=== PATIENT | male | born 1945 | race Caucasian/White ===

== ENCOUNTER 2018-03-02 00:17 | Inpatient (IN) ==
[2018-03-02 04:04] LABS: Basophils # 0.1 10*3/uL (0.0-0.2); Basophils % 0.7 % (0.0-0.8); Eosinophils # 0.3 10*3/uL (0.0-0.87); Eosinophils % 3.2 % (0.00-10.9); Hematocrit 28.2 VOL% (42.0-52.0); Hemoglobin 9.4 GM/DL (14.0-18.0); Immature Granulocytes % 0.6 %; Immature Granulocytes Absolute 0.06 #; Lymphocytes # 2.1 10*3/uL (1.4-4.0); Lymphocytes % 22.1 % (21.2-54.2); Mean Corpuscular HGB Conc 33.3 GM/DL (32-36); Mean Corpuscular Hemoglobin 29 PG (27-34); Mean Corpuscular Volume 85.5 FL (87-102); Mean Platelet Volume 10.9 FL (9.6-12.0); Monocytes # 1.1 10*3/uL (0.11-0.8); Monocytes % 11.3 % (1.7-12.7); Neutrophils # 5.8 10*3/uL (1.4-7.4); Neutrophils % 62.1 % (38.7-73.9); Platelet Count 134 T/CUMM (130-400); Red Cell Distribution Width 16.2 % (9.3-17.3); White Blood Count 9.4 T/CUMM (4-12)
[2018-03-02 04:23] LABS: Albumin 2.8 G/DL (3.4-5.0); Bilirubin,Total 0.4 MG/DL (0.2-1.0); Calcium 8.2 MG/DL (8.5-10.1); Osmolality,Calculated 286.4 MOS/KG (273-304); Potassium 4.4 MMOL/L (3.5-5.1); Total Protein 6.4 G/DL (6.4-8.3)
[2018-03-02] MEDS ORDERED: PIPERACILLIN/TAZOBACTAM 3,375 MG in SODIUM CHLORIDE 0.9% 100 ML IV STA (05:44)
[2018-03-02] MEDS ORDERED: PANTOPRAZOLE 40 MG TABLET PO SCH (09:46)
[2018-03-02] MEDS ORDERED: ONDANSETRON 4 MG/2 ML VIAL IV PRN ×2 (09:46)
[2018-03-02] MEDS ORDERED: ACETAMINOPHEN 325 MG TABLET PO PRN (09:46)
[2018-03-02] MEDS ORDERED: MORPHINE 4 MG/1 ML VIAL IV PRN (09:46)
[2018-03-02] MEDS ORDERED: DEXTROSE 50% 25 GM/50 ML VIAL IV PRN (09:46)
[2018-03-02] MEDS ORDERED: GLUCAGON 1 MG VIAL IM PRN (09:46)
[2018-03-02] MEDS: CARVEDILOL 25 MG TABLET PO SCH ×2 (11:34→20:24)
[2018-03-02] MEDS: LOSARTAN 25 MG TABLET PO SCH (11:35)
[2018-03-02] MEDS: ASPIRIN EC 81 MG TABLET PO SCH (11:35)
[2018-03-02] MEDS: ALLOPURINOL 300 MG TABLET PO SCH (11:35)
[2018-03-02] MEDS: PANTOPRAZOLE 40 MG TABLET PO SCH (11:39)
[2018-03-02] MEDS: INSULIN LISPRO 100 UNIT/ML SUBCUT SCH ×4 (14:11→18:11)
[2018-03-02] MEDS: INSULIN GLARGINE 100 UNIT/ML SUBCUT SCH ×2 (14:16→21:32)
[2018-03-02] MEDS ORDERED: REGADENOSON 0.4 MG/5 ML SYRINGE IV ONE (14:21)
[2018-03-02] MEDS: PIPERACILLIN/TAZOBACTAM 3,375 MG in SODIUM CHLORIDE 0.9% 100 ML IV SCH ×3 (16:27→23:55)
[2018-03-02] MEDS: LACTATED RINGERS 1,000 ML IV SCH ×2 (16:27→16:53)
[2018-03-02] MEDS: TERAZOSIN 5 MG CAPSULE PO SCH (20:24)
[2018-03-03] MEDS: HYDROmorphone 2 MG/1 ML VIAL IV PRN ×3 (00:14→11:24)
[2018-03-03] MEDS: INSULIN LISPRO 100 UNIT/ML SUBCUT SCH ×6 (00:16→19:26)
[2018-03-03 07:32] LABS: Basophils # 0.1 10*3/uL (0.0-0.2); Basophils % 1.2 % (0.0-0.8); Eosinophils # 0.3 10*3/uL (0.0-0.87); Eosinophils % 4.1 % (0.00-10.9); Hematocrit 27.3 VOL% (42.0-52.0); Hemoglobin 8.8 GM/DL (14.0-18.0); Immature Granulocytes % 0.5 %; Immature Granulocytes Absolute 0.03 #; Lymphocytes # 1.5 10*3/uL (1.4-4.0); Lymphocytes % 22.5 % (21.2-54.2); Mean Corpuscular HGB Conc 32.2 GM/DL (32-36); Mean Corpuscular Hemoglobin 28 PG (27-34); Mean Corpuscular Volume 87.8 FL (87-102); Mean Platelet Volume 11.7 FL (9.6-12.0); Monocytes # 0.9 10*3/uL (0.11-0.8); Monocytes % 13.7 % (1.7-12.7); Neutrophils # 3.8 10*3/uL (1.4-7.4); Platelet Count 132 T/CUMM (130-400); Red Blood Count 3.11 MC/CUMM (3.8-5.5); Red Cell Distribution Width 16.5 % (9.3-17.3); White Blood Count 6.6 T/CUMM (4-12)
[2018-03-03 08:10] LABS: Albumin 2.6 G/DL (3.4-5.0); Bilirubin,Total 0.9 MG/DL (0.2-1.0); Calcium 8.7 MG/DL (8.5-10.1); Potassium 4.6 MMOL/L (3.5-5.1); Total Protein 6.1 G/DL (6.4-8.3)
[2018-03-03] MEDS: PIPERACILLIN/TAZOBACTAM 3,375 MG in SODIUM CHLORIDE 0.9% 100 ML IV SCH ×2 (08:55→16:23)
[2018-03-03] MEDS ORDERED: NON-FORMULARY MEDICATION (Turmeric Root Extract 500 MG) PO SCH (09:00)
[2018-03-03] MEDS: LACTATED RINGERS 1,000 ML IV SCH ×3 (09:02→19:27)
[2018-03-03] MEDS ORDERED: DIAZEPAM 5 MG TABLET PO ONE (10:29)
[2018-03-03] MEDS ORDERED: FAMOTIDINE 20 MG/2 ML VIAL IV ONE (10:29)
[2018-03-03] MEDS: CARVEDILOL 25 MG TABLET PO SCH ×2 (10:56→20:39)
[2018-03-03] MEDS ORDERED: BUPIVACAINE 0.25% /EPI 10 ML VIAL ONE (11:59)
[2018-03-03] MEDS ORDERED: LIDOCAINE 1%/EPI INJ 20 ML VIAL ONE (11:59)
[2018-03-03] MEDS ORDERED: TISSUE ADHESIVE 1 EACH APPLICATOR TOP ONE (11:59)
[2018-03-03] MEDS ORDERED: PROPOFOL 200 MG/20 ML VIAL IV ONE (14:03)
[2018-03-03] MEDS ORDERED: ROCURONIUM 100 MG/10 ML VIAL IV ONE (14:04)
[2018-03-03] MEDS ORDERED: SUCCINYLCHOLINE 200 MG/10 ML VIAL ONE (14:04)
[2018-03-03] MEDS ORDERED: ACETAMINOPHEN 1,000 MG/100 ML VIAL IV ONE (14:04)
[2018-03-03] MEDS ORDERED: NEOSTIGMINE 10 MG/10 ML VIAL ONE (14:04)
[2018-03-03] MEDS ORDERED: ePHEDrine 50 MG/ML AMP ONE (14:04)
[2018-03-03] MEDS ORDERED: GLYCOPYRROLATE 0.4 MG/2 ML VIAL ONE (14:04)
[2018-03-03] MEDS ORDERED: ONDANSETRON 4 MG/2 ML VIAL ONE ×2 (14:04→14:09)
[2018-03-03] MEDS ORDERED: HYDROmorphone 2 MG/1 ML VIAL ONE (14:09)
[2018-03-03] MEDS ORDERED: ONDANSETRON 4 MG/2 ML VIAL IV PRN (14:16)
[2018-03-03] MEDS ORDERED: HYDROmorphone 2 MG/1 ML VIAL IV PRN (14:16)
[2018-03-03] MEDS: ASPIRIN EC 81 MG TABLET PO SCH (15:17)
[2018-03-03] MEDS: LOSARTAN 25 MG TABLET PO SCH (15:17)
[2018-03-03] MEDS: INSULIN GLARGINE 100 UNIT/ML SUBCUT SCH ×2 (15:18→20:39)
[2018-03-03] MEDS: PANTOPRAZOLE 40 MG TABLET PO SCH (15:18)
[2018-03-03] MEDS: ALLOPURINOL 300 MG TABLET PO SCH (15:19)
[2018-03-03] MEDS: TERAZOSIN 5 MG CAPSULE PO SCH (20:38)
[2018-03-04] MEDS: LACTATED RINGERS 1,000 ML IV SCH (05:37)
[2018-03-04] MEDS: INSULIN LISPRO 100 UNIT/ML SUBCUT SCH ×3 (07:00→09:22)
[2018-03-04] MEDS: ASPIRIN EC 81 MG TABLET PO SCH (08:54)
[2018-03-04] MEDS: PANTOPRAZOLE 40 MG TABLET PO SCH (08:54)
[2018-03-04] MEDS: CARVEDILOL 25 MG TABLET PO SCH (08:54)
[2018-03-04] MEDS: PIPERACILLIN/TAZOBACTAM 3,375 MG in SODIUM CHLORIDE 0.9% 100 ML IV SCH ×2 (08:55)
[2018-03-04] MEDS ORDERED: LOSARTAN 50 MG TABLET PO SCH (09:00)
[2018-03-04] MEDS: ALLOPURINOL 300 MG TABLET PO SCH (09:00)
[2018-03-04] MEDS: INSULIN GLARGINE 100 UNIT/ML SUBCUT SCH (10:03)
[2018-03-04 10:38] LABS: Calcium 8.5 MG/DL (8.5-10.1); Osmolality,Calculated 286.3 MOS/KG (273-304); Potassium 4.4 MMOL/L (3.5-5.1)
[2018-03-04 13:25] VITALS: BP 145/76
== END 2018-03-04 13:35 | disposition home or self-care (01) | DRG 418 ==
LOC: N.ED 00:17 → N.EDINP 05:45 → N.5E 12:34
PROVIDERS: ADMIT Surgery; ATTEND Surgery
PROC: LAPCHOL (2018-03-03 12:30)

== ENCOUNTER 2018-10-06 14:53 | Inpatient (IN) ==
[2018-10-06 16:03] LABS: Basophils % 0.3 % (0.0-0.8); Eosinophils % 0.3 % (0.00-10.9); Hemoglobin 10.2 GM/DL (14.0-18.0); Immature Granulocytes % 4.1 %; Immature Granulocytes Absolute 0.48 #; Lymphocytes # 1.6 10*3/uL (1.4-4.0); Lymphocytes % 13.4 % (21.2-54.2); Mean Corpuscular HGB Conc 32.9 GM/DL (32-36); Mean Corpuscular Volume 95.1 FL (87-102); Mean Platelet Volume 10.5 FL (9.6-12.0); Monocytes % 8.2 % (1.7-12.7); Neutrophils % 73.7 % (38.7-73.9); Platelet Count 177 T/CUMM (130-400); Red Blood Count 3.26 MC/CUMM (3.8-5.5); Red Cell Distribution Width 13.2 % (9.3-17.3); White Blood Count 11.8 T/CUMM (4-12)
[2018-10-06 16:11] LABS: PT Patient Result 10.8 SECS
[2018-10-06 16:27] LABS: Albumin 2.4 G/DL (3.4-5.0); Bilirubin,Total 0.5 MG/DL (0.2-1.0); Calcium 8.1 MG/DL (8.5-10.1); Osmolality,Calculated 313.8 MOS/KG (273-304); Total Protein 5.6 G/DL (6.4-8.3)
[2018-10-06] MEDS ORDERED: ONDANSETRON 4 MG/2 ML VIAL IV PRN (18:14)
[2018-10-06] MEDS ORDERED: ACETAMINOPHEN 325 MG TABLET PO PRN (18:14)
[2018-10-06 18:26] LABS: Apearance,Urine CLOUDY (Clear); Bacteria,Urine Many /HPF (Few); Bilirubin,Urine Negative (Negative); Blood, Urine Moderate mg/dL (Negative); Glucose,Urine (UA) 50 mg/dL (Negative); Ketones,Urine Negative (Negative); Mucus,Urine Occasional /LPF (Occasional); Nitrite,Urine Positive (Negative); Protein,Urine 100 MG/DL; RBC,Urine 30 /HPF (0-4); Squamous Epithelial Cell,Urine Occasional /HPF (0-10); Urine Color Yellow (Yellow); Urine Specific Gravity 1.012 (1.001-1.035); Urine Urobilinogen < 2.0 EU/DL (0.2-1.0); WBC,Urine 512 /HPF (0-6)
[2018-10-06] MEDS ORDERED: hydrALAZINE 20 MG/1 ML VIAL IV PRN (18:26)
[2018-10-06] MEDS ORDERED: GLUCAGON 1 MG VIAL IM PRN (18:48)
[2018-10-06] MEDS ORDERED: DEXTROSE 50% 25 GM/50 ML SYRINGE IV PRN (18:48)
[2018-10-06 19:53] LABS: Hematocrit 30.1 VOL% (42.0-52.0)
[2018-10-06] MEDS ORDERED: TERAZOSIN 10 MG CAPSULE PO SCH (21:00)
[2018-10-06] MEDS ORDERED: INSULIN GLARGINE 100 UNIT/ML SUBCUT SCH (21:00)
[2018-10-06] MEDS: TERAZOSIN 5 MG CAPSULE PO SCH (21:20)
[2018-10-06] MEDS: ATORVASTATIN 40 MG TABLET PO SCH (21:22)
[2018-10-06] MEDS: LOSARTAN 50 MG TABLET PO SCH (21:22)
[2018-10-06] MEDS: INSULIN GLARGINE 100 UNIT/ML SUBCUT SCH (21:23)
[2018-10-06] MEDS: CARVEDILOL 25 MG TABLET PO SCH (21:24)
[2018-10-06] MEDS: INSULIN LISPRO 100 UNIT/ML SUBCUT SCH (21:24)
[2018-10-06] MEDS: PANTOPRAZOLE 40 MG VIAL IV SCH (21:29)
[2018-10-07 01:13] LABS: Hematocrit 26.9 VOL% (42.0-52.0); Hemoglobin 8.8 GM/DL (14.0-18.0)
[2018-10-07 06:31] LABS: Basophils % 0.3 % (0.0-0.8); Eosinophils # 0.1 10*3/uL (0.0-0.87); Eosinophils % 0.6 % (0.00-10.9); Hematocrit 25.6 VOL% (42.0-52.0); Hemoglobin 8.4 GM/DL (14.0-18.0); Immature Granulocytes % 3.3 %; Immature Granulocytes Absolute 0.38 #; Lymphocytes # 1.6 10*3/uL (1.4-4.0); Mean Corpuscular HGB Conc 32.8 GM/DL (32-36); Mean Corpuscular Volume 95.5 FL (87-102); Mean Platelet Volume 10.7 FL (9.6-12.0); Monocytes % 10.6 % (1.7-12.7); Neutrophils % 71.2 % (38.7-73.9); Platelet Count 154 T/CUMM (130-400); Red Blood Count 2.68 MC/CUMM (3.8-5.5); Red Cell Distribution Width 13.4 % (9.3-17.3); White Blood Count 11.4 T/CUMM (4-12)
[2018-10-07 06:54] LABS: Calcium 7.9 MG/DL (8.5-10.1); Osmolality,Calculated 306.7 MOS/KG (273-304); Risk Ratio 5.47; Thyroid Stimulating Hormone 0.894 uIU/ml (0.358-3.74); VLDL CHOLESTEROL 46.4 MG/DL
[2018-10-07] MEDS: INSULIN LISPRO 100 UNIT/ML SUBCUT SCH ×4 (08:27→21:40)
[2018-10-07] MEDS: POTASSIUM CHLORIDE 20 MEQ TABLET PO SCH (08:40)
[2018-10-07] MEDS: CARVEDILOL 25 MG TABLET PO SCH ×2 (08:40→16:22)
[2018-10-07] MEDS: PANTOPRAZOLE 40 MG VIAL IV SCH ×2 (08:40→21:08)
[2018-10-07] MEDS: predniSONE 10 MG TABLET PO SCH (08:40)
[2018-10-07] MEDS ORDERED: FUROSEMIDE 20 MG/2 ML VIAL IV PRN (08:43)
[2018-10-07] MEDS ORDERED: SODIUM CHLORIDE 0.9% 1,000 ML IV PRN (08:43)
[2018-10-07] MEDS ORDERED: FUROSEMIDE 40 MG/4 ML VIAL IV SCH (09:00)
[2018-10-07] MEDS ORDERED: Turmeric Root Extract 500 MG PO SCH (09:00)
[2018-10-07 09:33] LABS: Troponin I < 0.015 NG/ML (0.00-0.045)
[2018-10-07 12:24] LABS: Hematocrit 27.2 VOL% (42.0-52.0); Hemoglobin 8.8 GM/DL (14.0-18.0)
[2018-10-07 12:48] LABS: Troponin I < 0.015 NG/ML (0.00-0.045)
[2018-10-07] MEDS: cefTRIAXone 1,000 MG in SYRINGE 1 EACH IV SCH (13:12)
[2018-10-07] MEDS: LOSARTAN 50 MG TABLET PO SCH (21:03)
[2018-10-07] MEDS: ATORVASTATIN 40 MG TABLET PO SCH (21:08)
[2018-10-07] MEDS: TERAZOSIN 5 MG CAPSULE PO SCH (21:08)
[2018-10-07] MEDS: INSULIN GLARGINE 100 UNIT/ML SUBCUT SCH (21:17)
[2018-10-08 06:35] LABS: Calcium 7.8 MG/DL (8.5-10.1); Osmolality,Calculated 303.7 MOS/KG (273-304)
[2018-10-08 07:02] LABS: Basophils # 0.1 10*3/uL (0.0-0.2); Basophils % 0.3 % (0.0-0.8); Eosinophils # 0.1 10*3/uL (0.0-0.87); Eosinophils % 0.6 % (0.00-10.9); Hematocrit 29.1 VOL% (42.0-52.0); Hemoglobin 8.7 GM/DL (14.0-18.0); Immature Granulocytes % 3.4 %; Immature Granulocytes Absolute 0.52 #; Lymphocytes # 1.8 10*3/uL (1.4-4.0); Lymphocytes % 11.7 % (21.2-54.2); Mean Corpuscular HGB Conc 29.9 GM/DL (32-36); Mean Corpuscular Volume 103.6 FL (87-102); Mean Platelet Volume 10.3 FL (9.6-12.0); Monocytes % 7.3 % (1.7-12.7); Neutrophils % 76.7 % (38.7-73.9); Platelet Count 154 T/CUMM (130-400); Red Blood Count 2.81 MC/CUMM (3.8-5.5); Red Cell Distribution Width 13.5 % (9.3-17.3); White Blood Count 15.4 T/CUMM (4-12)
[2018-10-08] MEDS ORDERED: LIDOCAINE 2% 5 ML VIAL ONE (07:42)
[2018-10-08] MEDS ORDERED: PROPOFOL 200 MG/20 ML VIAL IV ONE (07:42)
[2018-10-08 07:54] LABS: Band Neutrophils 2 % (0-10); Eosinophils 1 % (0-10); Lymphocytes 11 % (20-55); Myelocytes 1 %; Segmented Neutrophils 78 % (50-85); Total Cells Counted 100
[2018-10-08 07:55] LABS: Macrocytosis Slight; Platelet Estimate Adequate
[2018-10-08] MEDS: predniSONE 10 MG TABLET PO SCH (09:54)
[2018-10-08] MEDS: POTASSIUM CHLORIDE 20 MEQ TABLET PO SCH (09:54)
[2018-10-08] MEDS: CARVEDILOL 25 MG TABLET PO SCH ×2 (09:54→17:27)
[2018-10-08] MEDS: INSULIN LISPRO 100 UNIT/ML SUBCUT SCH ×4 (09:54→21:07)
[2018-10-08] MEDS: cefTRIAXone 1,000 MG in SYRINGE 1 EACH IV SCH (09:55)
[2018-10-08] MEDS: PANTOPRAZOLE 40 MG VIAL IV SCH ×2 (09:55→21:08)
[2018-10-08] MEDS ORDERED: cloNIDine 0.1 MG TABLET PO PRN (13:17)
[2018-10-08] MEDS: INSULIN GLARGINE 100 UNIT/ML SUBCUT SCH (21:07)
[2018-10-08] MEDS: TERAZOSIN 5 MG CAPSULE PO SCH (21:08)
[2018-10-08] MEDS: ATORVASTATIN 40 MG TABLET PO SCH (21:09)
[2018-10-09 05:12] LABS: Basophils % 0.3 % (0.0-0.8); Eosinophils # 0.1 10*3/uL (0.0-0.87); Eosinophils % 0.9 % (0.00-10.9); Hematocrit 24.9 VOL% (42.0-52.0); Hemoglobin 7.9 GM/DL (14.0-18.0); Immature Granulocytes % 3.8 %; Lymphocytes # 1.7 10*3/uL (1.4-4.0); Mean Corpuscular HGB Conc 31.7 GM/DL (32-36); Mean Corpuscular Volume 97.6 FL (87-102); Mean Platelet Volume 10.8 FL (9.6-12.0); Monocytes % 7.2 % (1.7-12.7); Neutrophils % 74.8 % (38.7-73.9); Platelet Count 180 T/CUMM (130-400); Red Blood Count 2.55 MC/CUMM (3.8-5.5); Red Cell Distribution Width 13.2 % (9.3-17.3); White Blood Count 13.3 T/CUMM (4-12)
[2018-10-09 05:35] LABS: Calcium 8.1 MG/DL (8.5-10.1); Osmolality,Calculated 304.5 MOS/KG (273-304)
[2018-10-09] MEDS: CARVEDILOL 25 MG TABLET PO SCH (08:18)
[2018-10-09] MEDS: INSULIN LISPRO 100 UNIT/ML SUBCUT SCH (08:18)
[2018-10-09 08:43] VITALS: BP 163/61
[2018-10-09] MEDS: predniSONE 10 MG TABLET PO SCH (09:39)
[2018-10-09] MEDS: PANTOPRAZOLE 40 MG VIAL IV SCH (09:39)
[2018-10-09] MEDS: POTASSIUM CHLORIDE 20 MEQ TABLET PO SCH (09:39)
[2018-10-09] MEDS: cefTRIAXone 1,000 MG in SYRINGE 1 EACH IV SCH (09:39)
[2018-10-09] MEDS ORDERED: CARVEDILOL 25 MG TABLET PO SCH (17:00)
== END 2018-10-09 11:23 | disposition home or self-care (01) | DRG 291 ==
LOC: N.ED 14:53 → N.EDINP 17:34 → N.2E 19:13
PROVIDERS: ADMIT Internal Medicine; ATTEND Internal Medicine

== ENCOUNTER 2021-02-02 10:04 | Inpatient (IN) ==
[2021-02-02 12:17] LABS: Basophils # 0.1 10*3/uL (0.0-0.2); Basophils % 0.5 % (0.0-0.8); Eosinophils # 0.1 10*3/uL (0.0-0.87); Hemoglobin 8.7 GM/DL (14.0-18.0); Immature Granulocytes % 1.4 %; Immature Granulocytes Absolute 0.17 #; Lymphocytes # 1.6 10*3/uL (1.4-4.0); Lymphocytes % 12.5 % (21.2-54.2); Mean Corpuscular HGB Conc 32.2 GM/DL (32-36); Mean Platelet Volume 10.6 FL (9.6-12.0); Monocytes % 8.4 % (1.7-12.7); Neutrophils % 76.2 % (38.7-73.9); Platelet Count 251 T/CUMM (130-400); Red Blood Count 3.14 MC/CUMM (3.8-5.5); Red Cell Distribution Width 14.2 % (9.3-17.3); White Blood Count 12.5 T/CUMM (4-12)
[2021-02-02] MEDS ORDERED: cefTRIAXone 1,000 MG in SODIUM CHLORIDE 0.9% 100 ML IV STA (12:21)
[2021-02-02 12:46] LABS: Albumin 2.4 G/DL (3.4-5.0); Bilirubin,Total 0.4 MG/DL (0.20-1.00); Calcium 7.7 MG/DL (8.5-10.1); Osmolality,Calculated 313.1 MOS/KG (273-304); Potassium 5.5 MMOL/L (3.5-5.1); Total Protein 7.2 G/DL (6.4-8.2)
[2021-02-02] MEDS ORDERED: SODIUM CHLORIDE 0.9% 500 ML IV STA (12:57)
[2021-02-02 13:14] LABS: INR 1.2; PT Patient Result 13.6 SECS (10.5-12.0)
[2021-02-02] MEDS ORDERED: GLUCAGON 1 MG VIAL IM PRN (14:01)
[2021-02-02] MEDS ORDERED: DEXTROSE 50% 25 GM/50 ML VIAL IV PRN ×2 (14:01→14:07)
[2021-02-02] MEDS ORDERED: ONDANSETRON 4 MG/2 ML VIAL IV PRN (14:07)
[2021-02-02] MEDS ORDERED: ACETAMINOPHEN 325 MG TABLET PO PRN (14:07)
[2021-02-02] MEDS ORDERED: DOCUSATE SODIUM 100 MG CAPSULE PO PRN (14:07)
[2021-02-02] MEDS: INSULIN LISPRO 100 UNIT/ML SUBCUT SCH ×2 (16:52→21:42)
[2021-02-02] MEDS: HEPARIN 5,000 UNIT/1 ML VIAL SUBCUT SCH (17:06)
[2021-02-02 18:19] LABS: Bilirubin,Urine Negative (Negative); Blood, Urine Large mg/dL (Negative); Glucose,Urine (UA) Negative (Negative); Hyaline Casts,Urine 22 /LPF (0-3); Ketones,Urine Negative (Negative); Mucus,Urine Occasional /LPF (Occasional); Nitrite,Urine Negative (Negative); Protein,Urine >=500 MG/DL; RBC,Urine 263 /HPF (0-4); Squamous Epithelial Cell,Urine Few /HPF (0-10); Urine Appearance CLOUDY (Clear); Urine Color Amber (Yellow); Urine Specific Gravity 1.023 (1.001-1.035); Urine Urobilinogen < 2.0 EU/DL (0.2-1.0)
[2021-02-02] MEDS: carvediloL 25 MG TABLET PO SCH (21:41)
[2021-02-03] MEDS: HEPARIN 5,000 UNIT/1 ML VIAL SUBCUT SCH (03:35)
[2021-02-03 06:24] LABS: Basophils % 0.3 % (0.0-0.8); Eosinophils # 0.2 10*3/uL (0.0-0.87); Eosinophils % 1.9 % (0.00-10.9); Hematocrit 25.3 VOL% (42.0-52.0); Hemoglobin 7.9 GM/DL (14.0-18.0); Immature Granulocytes % 0.9 %; Immature Granulocytes Absolute 0.09 #; Lymphocytes # 1.2 10*3/uL (1.4-4.0); Mean Corpuscular HGB Conc 31.2 GM/DL (32-36); Mean Corpuscular Volume 86.6 FL (87-102); Mean Platelet Volume 10.2 FL (9.6-12.0); Monocytes % 8.4 % (1.7-12.7); Neutrophils % 76.5 % (38.7-73.9); Platelet Count 249 T/CUMM (130-400); Red Blood Count 2.92 MC/CUMM (3.8-5.5); Red Cell Distribution Width 14.1 % (9.3-17.3); White Blood Count 10.3 T/CUMM (4-12)
[2021-02-03 06:43] LABS: Basophils % 0.2 % (0.0-0.8); Eosinophils # 0.2 10*3/uL (0.0-0.87); Eosinophils % 1.7 % (0.00-10.9); Hematocrit 25.1 VOL% (42.0-52.0); Hemoglobin 7.9 GM/DL (14.0-18.0); Lymphocytes # 1.3 10*3/uL (1.4-4.0); Lymphocytes % 12.4 % (21.2-54.2); Mean Corpuscular HGB Conc 31.5 GM/DL (32-36); Mean Corpuscular Volume 86.3 FL (87-102); Mean Platelet Volume 10.2 FL (9.6-12.0); Monocytes % 9.2 % (1.7-12.7); Neutrophils % 75.5 % (38.7-73.9); Platelet Count 248 T/CUMM (130-400); Red Blood Count 2.91 MC/CUMM (3.8-5.5); Red Cell Distribution Width 14.3 % (9.3-17.3); White Blood Count 10.3 T/CUMM (4-12)
[2021-02-03 06:57] LABS: Calcium 7.5 MG/DL (8.5-10.1); Osmolality,Calculated 312.2 MOS/KG (273-304); Potassium 5.7 MMOL/L (3.5-5.1)
[2021-02-03 06:59] LABS: % Iron Saturation 9.6 % (18-50); Ferritin 101.9 ng/ml (26-388)
[2021-02-03 07:04] LABS: Folate 11.19 NG/ML (5.38-24.0); Vitamin B12 600 PG/ML (211-911)
[2021-02-03] MEDS ORDERED: SODIUM POLYSTYRENE SULFATE 15 GM/60 ML BOTTLE PO ONE (07:49)
[2021-02-03 07:51] LABS: Sedimentation Rate-Westergren 133 MM/HR (0-20)
[2021-02-03] MEDS: predniSONE 5 MG TABLET PO SCH (09:09)
[2021-02-03] MEDS: PANTOPRAZOLE 40 MG TABLET PO SCH (09:09)
[2021-02-03] MEDS: FINASTERIDE 5 MG TABLET PO SCH (09:09)
[2021-02-03] MEDS: carvediloL 25 MG TABLET PO SCH ×2 (09:09→20:48)
[2021-02-03] MEDS: AZITHROMYCIN INJ 500 MG in SODIUM CHLORIDE 0.9% 250 ML IV SCH (09:10)
[2021-02-03] MEDS: INSULIN LISPRO 100 UNIT/ML SUBCUT SCH ×4 (09:10→22:03)
[2021-02-03] MEDS: cefTRIAXone 1,000 MG in SODIUM CHLORIDE 0.9% 100 ML IV SCH (12:18)
[2021-02-03] MEDS ORDERED: FUROSEMIDE 40 MG/4 ML VIAL IV ONE (12:39)
[2021-02-03 13:23] LABS: Bilirubin,Urine Negative (Negative); Blood, Urine Large mg/dL (Negative); Glucose,Urine (UA) Negative (Negative); Hyaline Casts,Urine 8 /LPF (0-3); Ketones,Urine Negative (Negative); Mucus,Urine Occasional /LPF (Occasional); Nitrite,Urine Negative (Negative); Protein,Urine >=500 MG/DL; RBC,Urine 290 /HPF (0-4); Squamous Epithelial Cell,Urine Occasional /HPF (0-10); Urine Appearance CLOUDY (Clear); Urine Color Yellow (Yellow); Urine Specific Gravity 1.019 (1.001-1.035); Urine Urobilinogen < 2.0 EU/DL (0.2-1.0)
[2021-02-03] MEDS ORDERED: ALBUTEROL 2.5 MG/3 ML NEB RESP TX PRN (14:52)
[2021-02-03] MEDS ORDERED: BENZONATATE 100 MG CAPSULE PO PRN (14:52)
[2021-02-03] MEDS ORDERED: DEXTROSE 50% 25 GM/50 ML VIAL IV ONE (16:32)
[2021-02-03] MEDS ORDERED: INSULIN REGULAR 100 UNIT/ML IV ONE (16:32)
[2021-02-03] MEDS ORDERED: CALCIUM GLUCONATE 1,000 MG in SODIUM CHLORIDE 0.9% 100 ML IV ONE (16:32)
[2021-02-03] MEDS ORDERED: SODIUM BICARBONATE 50 MEQ/50 ML SYRINGE IV ONE (17:00)
[2021-02-03] MEDS: POLYCARBOPHIL 625 MG TABLET PO SCH (20:48)
[2021-02-03] MEDS: ALBUTEROL/IPRATROPIUM 3 ML NEB RESP TX SCH (20:52)
[2021-02-04] MEDS: ALBUTEROL/IPRATROPIUM 3 ML NEB RESP TX SCH ×4 (01:45→19:32)
[2021-02-04 06:19] LABS: Basophils % 0.3 % (0.0-0.8); Eosinophils # 0.1 10*3/uL (0.0-0.87); Eosinophils % 1.1 % (0.00-10.9); Hematocrit 24.1 VOL% (42.0-52.0); Hemoglobin 7.9 GM/DL (14.0-18.0); Immature Granulocytes % 0.9 %; Lymphocytes # 1.4 10*3/uL (1.4-4.0); Lymphocytes % 11.9 % (21.2-54.2); Mean Corpuscular HGB Conc 32.8 GM/DL (32-36); Mean Corpuscular Volume 85.8 FL (87-102); Mean Platelet Volume 9.7 FL (9.6-12.0); Monocytes % 8.9 % (1.7-12.7); Neutrophils % 76.9 % (38.7-73.9); Platelet Count 244 T/CUMM (130-400); Red Blood Count 2.81 MC/CUMM (3.8-5.5); Red Cell Distribution Width 14.4 % (9.3-17.3); White Blood Count 11.6 T/CUMM (4-12)
[2021-02-04 06:47] LABS: Calcium 7.2 MG/DL (8.5-10.1); Osmolality,Calculated 326.3 MOS/KG (273-304); Potassium 5.1 MMOL/L (3.5-5.1)
[2021-02-04] MEDS: INSULIN LISPRO 100 UNIT/ML SUBCUT SCH ×4 (07:51→20:19)
[2021-02-04] MEDS: AZITHROMYCIN INJ 500 MG in SODIUM CHLORIDE 0.9% 250 ML IV SCH (09:11)
[2021-02-04] MEDS ORDERED: BUPIVACAINE MPF 0.25% 30 ML VIAL ONE (09:21)
[2021-02-04] MEDS ORDERED: LIDOCAINE 1%/EPI INJ 20 ML VIAL ONE (09:21)
[2021-02-04] MEDS ORDERED: HEPARIN 5,000 UNIT/1 ML VIAL ONE (09:22)
[2021-02-04 09:47] LABS: Hepatitis B Core IgM Quant 0.12 Index; Hepatitis B Surface Ag Quant < 0.10 Index; Hepatitis B Surface Ag Result Non-Reactive (NonReactive); Hepatitis C Virus Ab Quant 0.09 Index; Hepatitis C Virus Ab Result Non-Reactive (NonReactive)
[2021-02-04] MEDS ORDERED: SODIUM CHLORIDE 0.9% 250 ML IV SCH (10:00)
[2021-02-04] MEDS ORDERED: ceFAZolin 1,000 MG VIAL ONE (10:24)
[2021-02-04] MEDS ORDERED: ONDANSETRON 4 MG/2 ML VIAL ONE (10:24)
[2021-02-04] MEDS ORDERED: TISSUE ADHESIVE 1 EACH APPLICATOR TOP ONE (10:33)
[2021-02-04] MEDS: FINASTERIDE 5 MG TABLET PO SCH (10:54)
[2021-02-04] MEDS: carvediloL 25 MG TABLET PO SCH ×2 (10:54→20:42)
[2021-02-04] MEDS: predniSONE 5 MG TABLET PO SCH (10:54)
[2021-02-04] MEDS: PANTOPRAZOLE 40 MG TABLET PO SCH (10:55)
[2021-02-04] MEDS ORDERED: MORPHINE 2 MG/1 ML SYRINGE IV PRN (11:57)
[2021-02-04] MEDS: cefTRIAXone 1,000 MG in SODIUM CHLORIDE 0.9% 100 ML IV SCH (12:03)
[2021-02-04] MEDS ORDERED: HEPARIN 10,000 UNIT/10 ML VIAL IV SCH (13:15)
[2021-02-04] MEDS ORDERED: hydrALAZINE 20 MG/1 ML VIAL IV PRN (13:38)
[2021-02-04] MEDS ORDERED: IRON SUCROSE 100 MG/5 ML VIAL IV SCH (16:30)
[2021-02-04] MEDS: POLYCARBOPHIL 625 MG TABLET PO SCH (20:42)
[2021-02-05] MEDS: ALBUTEROL/IPRATROPIUM 3 ML NEB RESP TX SCH ×4 (00:40→19:15)
[2021-02-05 04:29] LABS: Basophils % 0.1 % (0.0-0.8); Eosinophils # 0.1 10*3/uL (0.0-0.87); Eosinophils % 0.3 % (0.00-10.9); Hematocrit 23.4 VOL% (42.0-52.0); Hemoglobin 7.3 GM/DL (14.0-18.0); Immature Granulocytes % 0.8 %; Immature Granulocytes Absolute 0.11 #; Lymphocytes # 1.1 10*3/uL (1.4-4.0); Lymphocytes % 7.6 % (21.2-54.2); Mean Corpuscular HGB Conc 31.2 GM/DL (32-36); Mean Corpuscular Volume 87.3 FL (87-102); Mean Platelet Volume 9.4 FL (9.6-12.0); Monocytes % 8.7 % (1.7-12.7); Neutrophils % 82.5 % (38.7-73.9); Platelet Count 214 T/CUMM (130-400); Red Blood Count 2.68 MC/CUMM (3.8-5.5); Red Cell Distribution Width 14.8 % (9.3-17.3); White Blood Count 14.4 T/CUMM (4-12)
[2021-02-05 04:50] LABS: Calcium 7.1 MG/DL (8.5-10.1); Osmolality,Calculated 317.5 MOS/KG (273-304); Potassium 5.5 MMOL/L (3.5-5.1)
[2021-02-05] MEDS ORDERED: MAGNESIUM SULF RIDER 2 GM/50 ML PREMIX IV ONE (07:17)
[2021-02-05] MEDS: INSULIN LISPRO 100 UNIT/ML SUBCUT SCH ×4 (07:48→21:27)
[2021-02-05] MEDS: FINASTERIDE 5 MG TABLET PO SCH (08:11)
[2021-02-05] MEDS: predniSONE 5 MG TABLET PO SCH (08:12)
[2021-02-05] MEDS: carvediloL 25 MG TABLET PO SCH ×2 (08:12→21:08)
[2021-02-05] MEDS: PANTOPRAZOLE 40 MG TABLET PO SCH (08:13)
[2021-02-05] MEDS: AZITHROMYCIN INJ 500 MG in SODIUM CHLORIDE 0.9% 250 ML IV SCH (09:43)
[2021-02-05 09:49] LABS: Hemoglobin A1 (Alkaline) 97.5 % (96.5-98.5); Hemoglobin A2 (Alkaline) 2.5 % (1.5-3.5)
[2021-02-05] MEDS: LEVOFLOXACIN 500 MG TABLET PO SCH (14:06)
[2021-02-05] MEDS: POLYCARBOPHIL 625 MG TABLET PO SCH (21:08)
[2021-02-06] MEDS: ALBUTEROL/IPRATROPIUM 3 ML NEB RESP TX SCH ×4 (00:45→19:32)
[2021-02-06 07:11] LABS: Basophils % 0.2 % (0.0-0.8); Eosinophils # 0.1 10*3/uL (0.0-0.87); Eosinophils % 0.4 % (0.00-10.9); Hematocrit 21.9 VOL% (42.0-52.0); Hemoglobin 7.1 GM/DL (14.0-18.0); Immature Granulocytes % 0.6 %; Lymphocytes # 1.4 10*3/uL (1.4-4.0); Lymphocytes % 8.5 % (21.2-54.2); Mean Corpuscular HGB Conc 32.4 GM/DL (32-36); Mean Corpuscular Volume 86.6 FL (87-102); Mean Platelet Volume 9.9 FL (9.6-12.0); Monocytes % 10.8 % (1.7-12.7); Neutrophils % 79.5 % (38.7-73.9); Platelet Count 200 T/CUMM (130-400); Red Blood Count 2.53 MC/CUMM (3.8-5.5); Red Cell Distribution Width 14.8 % (9.3-17.3); White Blood Count 16.4 T/CUMM (4-12)
[2021-02-06 07:45] LABS: Calcium 7.9 MG/DL (8.5-10.1); Osmolality,Calculated 295.1 MOS/KG (273-304)
[2021-02-06] MEDS ORDERED: SODIUM CHLORIDE 0.9% 1,000 ML IV PRN (08:33)
[2021-02-06] MEDS: INSULIN LISPRO 100 UNIT/ML SUBCUT SCH ×4 (09:00→21:15)
[2021-02-06] MEDS: carvediloL 25 MG TABLET PO SCH ×2 (09:00→20:53)
[2021-02-06] MEDS: predniSONE 5 MG TABLET PO SCH (14:07)
[2021-02-06] MEDS: FINASTERIDE 5 MG TABLET PO SCH (14:07)
[2021-02-06] MEDS: PANTOPRAZOLE 40 MG TABLET PO SCH (14:07)
[2021-02-06] MEDS ORDERED: PHENOL 1.4% THROAT SPRAY 177 ML BOTTLE PO PRN (15:49)
[2021-02-06] MEDS: NYSTATIN 500,000 UNIT/5 ML UDCUP SWISH/SWAL SCH ×2 (17:00→20:54)
[2021-02-06] MEDS: POLYCARBOPHIL 625 MG TABLET PO SCH (20:54)
[2021-02-07] MEDS: ALBUTEROL/IPRATROPIUM 3 ML NEB RESP TX SCH ×4 (00:30→19:16)
[2021-02-07 04:38] LABS: Basophils % 0.1 % (0.0-0.8); Eosinophils # 0.1 10*3/uL (0.0-0.87); Eosinophils % 0.9 % (0.00-10.9); Hematocrit 22.1 VOL% (42.0-52.0); Hemoglobin 6.8 GM/DL (14.0-18.0); Immature Granulocytes % 0.9 %; Immature Granulocytes Absolute 0.13 #; Lymphocytes # 1.3 10*3/uL (1.4-4.0); Lymphocytes % 9.1 % (21.2-54.2); Mean Corpuscular HGB Conc 30.8 GM/DL (32-36); Mean Corpuscular Volume 87.7 FL (87-102); Mean Platelet Volume 9.9 FL (9.6-12.0); Monocytes % 9.6 % (1.7-12.7); Neutrophils % 79.4 % (38.7-73.9); Platelet Count 194 T/CUMM (130-400); Red Blood Count 2.52 MC/CUMM (3.8-5.5); Red Cell Distribution Width 14.6 % (9.3-17.3); White Blood Count 14.7 T/CUMM (4-12)
[2021-02-07 05:07] LABS: Osmolality,Calculated 292.8 MOS/KG (273-304)
[2021-02-07] MEDS ORDERED: EPOETIN ALFA-EPBX 2,000 UNIT/ML VIAL IV SCH (08:30)
[2021-02-07] MEDS: INSULIN LISPRO 100 UNIT/ML SUBCUT SCH ×4 (09:49→22:24)
[2021-02-07 11:35] LABS: Myeloperoxidase Antibody < 0.2 U
[2021-02-07] MEDS: predniSONE 5 MG TABLET PO SCH (13:33)
[2021-02-07] MEDS: FINASTERIDE 5 MG TABLET PO SCH (13:34)
[2021-02-07] MEDS: LEVOFLOXACIN 500 MG TABLET PO SCH (13:34)
[2021-02-07] MEDS: carvediloL 25 MG TABLET PO SCH ×2 (13:34→20:52)
[2021-02-07] MEDS: PANTOPRAZOLE 40 MG TABLET PO SCH ×2 (13:34→21:56)
[2021-02-07] MEDS: NYSTATIN 500,000 UNIT/5 ML UDCUP SWISH/SWAL SCH ×4 (13:35→20:55)
[2021-02-07] MEDS: cefTRIAXone 1,000 MG in SODIUM CHLORIDE 0.9% 100 ML IV SCH (13:35)
[2021-02-07] MEDS ORDERED: HYDROmorphone 2 MG/1 ML VIAL IV PRN (18:18)
[2021-02-07] MEDS: POLYCARBOPHIL 625 MG TABLET PO SCH (20:52)
[2021-02-08] MEDS: ALBUTEROL/IPRATROPIUM 3 ML NEB RESP TX SCH ×4 (02:47→19:10)
[2021-02-08 04:45] LABS: Basophils % 0.3 % (0.0-0.8); Eosinophils # 0.2 10*3/uL (0.0-0.87); Eosinophils % 1.4 % (0.00-10.9); Hematocrit 26.2 VOL% (42.0-52.0); Hemoglobin 8.6 GM/DL (14.0-18.0); Immature Granulocytes % 1.2 %; Immature Granulocytes Absolute 0.18 #; Lymphocytes # 1.3 10*3/uL (1.4-4.0); Lymphocytes % 9.2 % (21.2-54.2); Mean Corpuscular HGB Conc 32.8 GM/DL (32-36); Mean Corpuscular Volume 86.8 FL (87-102); Mean Platelet Volume 10.1 FL (9.6-12.0); Monocytes % 10.5 % (1.7-12.7); Neutrophils % 77.4 % (38.7-73.9); Platelet Count 188 T/CUMM (130-400); Red Blood Count 3.02 MC/CUMM (3.8-5.5); Red Cell Distribution Width 14.6 % (9.3-17.3); White Blood Count 14.5 T/CUMM (4-12)
[2021-02-08 05:13] LABS: Calcium 8.1 MG/DL (8.5-10.1); Osmolality,Calculated 286.2 MOS/KG (273-304); Potassium 4.7 MMOL/L (3.5-5.1)
[2021-02-08] MEDS ORDERED: SODIUM CHLORIDE 0.9% 1,000 ML IV SCH (07:00)
[2021-02-08] MEDS: INSULIN LISPRO 100 UNIT/ML SUBCUT SCH ×4 (07:37→21:58)
[2021-02-08] MEDS ORDERED: propofoL 200 MG/20 ML VIAL IV ONE (08:34)
[2021-02-08] MEDS ORDERED: ETOMIDATE 20 MG/10 ML VIAL IV ONE (08:34)
[2021-02-08] MEDS ORDERED: LIDOCAINE 2% 5 ML VIAL ONE (08:34)
[2021-02-08] MEDS: carvediloL 25 MG TABLET PO SCH ×2 (09:16→21:58)
[2021-02-08] MEDS: NYSTATIN 500,000 UNIT/5 ML UDCUP SWISH/SWAL SCH ×4 (09:16→22:07)
[2021-02-08] MEDS: FINASTERIDE 5 MG TABLET PO SCH (09:16)
[2021-02-08] MEDS: predniSONE 5 MG TABLET PO SCH (09:16)
[2021-02-08] MEDS: PANTOPRAZOLE 40 MG TABLET PO SCH ×2 (09:17→21:58)
[2021-02-08] MEDS: cefTRIAXone 1,000 MG in SODIUM CHLORIDE 0.9% 100 ML IV SCH (10:14)
[2021-02-08] MEDS: POLYCARBOPHIL 625 MG TABLET PO SCH (19:47)
[2021-02-09] MEDS: ALBUTEROL/IPRATROPIUM 3 ML NEB RESP TX SCH ×4 (00:12→19:34)
[2021-02-09 08:13] LABS: Basophils % 0.4 % (0.0-0.8); Eosinophils # 0.5 10*3/uL (0.0-0.87); Eosinophils % 4.5 % (0.00-10.9); Hematocrit 26.9 VOL% (42.0-52.0); Hemoglobin 8.5 GM/DL (14.0-18.0); Immature Granulocytes % 1.6 %; Immature Granulocytes Absolute 0.18 #; Lymphocytes # 0.8 10*3/uL (1.4-4.0); Lymphocytes % 6.8 % (21.2-54.2); Mean Corpuscular HGB Conc 31.6 GM/DL (32-36); Mean Corpuscular Volume 87.6 FL (87-102); Mean Platelet Volume 10.2 FL (9.6-12.0); Monocytes % 10.1 % (1.7-12.7); Neutrophils % 76.6 % (38.7-73.9); Platelet Count 196 T/CUMM (130-400); Red Blood Count 3.07 MC/CUMM (3.8-5.5); Red Cell Distribution Width 14.6 % (9.3-17.3); White Blood Count 11.3 T/CUMM (4-12)
[2021-02-09 08:32] LABS: Calcium 8.3 MG/DL (8.5-10.1); Osmolality,Calculated 292.4 MOS/KG (273-304); Potassium 4.8 MMOL/L (3.5-5.1)
[2021-02-09] MEDS: INSULIN LISPRO 100 UNIT/ML SUBCUT SCH ×4 (08:33→20:12)
[2021-02-09] MEDS: cefTRIAXone 1,000 MG in SODIUM CHLORIDE 0.9% 100 ML IV SCH (11:00)
[2021-02-09] MEDS: NYSTATIN 500,000 UNIT/5 ML UDCUP SWISH/SWAL SCH ×4 (11:00→20:45)
[2021-02-09] MEDS: predniSONE 5 MG TABLET PO SCH (11:44)
[2021-02-09] MEDS: LEVOFLOXACIN 500 MG TABLET PO SCH (11:44)
[2021-02-09] MEDS: carvediloL 25 MG TABLET PO SCH ×2 (11:44→20:46)
[2021-02-09] MEDS: FINASTERIDE 5 MG TABLET PO SCH (11:45)
[2021-02-09] MEDS: PANTOPRAZOLE 40 MG TABLET PO SCH ×2 (11:45→20:46)
[2021-02-09] MEDS: POLYCARBOPHIL 625 MG TABLET PO SCH (20:12)
[2021-02-10] MEDS: ALBUTEROL/IPRATROPIUM 3 ML NEB RESP TX SCH ×4 (00:20→19:23)
[2021-02-10 06:51] LABS: Basophils # 0.1 10*3/uL (0.0-0.2); Basophils % 0.5 % (0.0-0.8); Eosinophils # 0.6 10*3/uL (0.0-0.87); Eosinophils % 4.5 % (0.00-10.9); Hemoglobin 8.5 GM/DL (14.0-18.0); Immature Granulocytes Absolute 0.37 #; Lymphocytes # 0.8 10*3/uL (1.4-4.0); Lymphocytes % 6.7 % (21.2-54.2); Mean Corpuscular HGB Conc 30.4 GM/DL (32-36); Mean Corpuscular Volume 89.7 FL (87-102); Mean Platelet Volume 10.1 FL (9.6-12.0); Monocytes % 10.5 % (1.7-12.7); Neutrophils % 74.8 % (38.7-73.9); Platelet Count 206 T/CUMM (130-400); Red Blood Count 3.12 MC/CUMM (3.8-5.5); Red Cell Distribution Width 14.7 % (9.3-17.3); White Blood Count 12.1 T/CUMM (4-12)
[2021-02-10 06:57] LABS: Calcium 8.1 MG/DL (8.5-10.1); Osmolality,Calculated 286.1 MOS/KG (273-304); Potassium 4.8 MMOL/L (3.5-5.1)
[2021-02-10] MEDS: INSULIN LISPRO 100 UNIT/ML SUBCUT SCH ×4 (09:07→21:20)
[2021-02-10] MEDS: predniSONE 5 MG TABLET PO SCH (09:08)
[2021-02-10] MEDS: carvediloL 25 MG TABLET PO SCH ×2 (09:08→21:20)
[2021-02-10] MEDS: NYSTATIN 500,000 UNIT/5 ML UDCUP SWISH/SWAL SCH ×4 (09:08→21:19)
[2021-02-10] MEDS: FINASTERIDE 5 MG TABLET PO SCH (09:08)
[2021-02-10] MEDS: PANTOPRAZOLE 40 MG TABLET PO SCH ×2 (09:10→21:20)
[2021-02-10] MEDS: cefTRIAXone 1,000 MG in SODIUM CHLORIDE 0.9% 100 ML IV SCH (09:10)
[2021-02-10] MEDS: BISACODYL 5 MG TABLET PO SCH ×2 (09:52→18:03)
[2021-02-10] MEDS: POLYETHYLENE GLYCOL 3350/ELECTROLYTES 4,000 ML BOTTLE PO ONE ×2 (16:07→23:35)
[2021-02-10] MEDS: POLYCARBOPHIL 625 MG TABLET PO SCH (19:56)
[2021-02-10] MEDS ORDERED: MAGNESIUM CITRATE 300 ML BOTTLE PO ONE (21:00)
[2021-02-11] MEDS: ALBUTEROL/IPRATROPIUM 3 ML NEB RESP TX SCH ×4 (00:33→19:30)
[2021-02-11] MEDS: BISACODYL 5 MG TABLET PO SCH (00:53)
[2021-02-11] MEDS: ACETAMINOPHEN 500 MG TABLET PO PRN (03:04)
[2021-02-11 06:07] LABS: Basophils # 0.1 10*3/uL (0.0-0.2); Basophils % 0.5 % (0.0-0.8); Eosinophils # 0.5 10*3/uL (0.0-0.87); Eosinophils % 4.2 % (0.00-10.9); Hematocrit 26.8 VOL% (42.0-52.0); Hemoglobin 8.4 GM/DL (14.0-18.0); Immature Granulocytes % 2.9 %; Immature Granulocytes Absolute 0.32 #; Lymphocytes # 0.6 10*3/uL (1.4-4.0); Lymphocytes % 5.7 % (21.2-54.2); Mean Corpuscular HGB Conc 31.3 GM/DL (32-36); Mean Corpuscular Volume 88.2 FL (87-102); Mean Platelet Volume 10.3 FL (9.6-12.0); Neutrophils % 75.7 % (38.7-73.9); Platelet Count 196 T/CUMM (130-400); Red Blood Count 3.04 MC/CUMM (3.8-5.5); Red Cell Distribution Width 14.6 % (9.3-17.3)
[2021-02-11 06:13] LABS: INR 1.4; PT Patient Result 15.3 SECS (10.5-12.0)
[2021-02-11 06:21] LABS: Osmolality,Calculated 286.2 MOS/KG (273-304); Potassium 4.9 MMOL/L (3.5-5.1)
[2021-02-11] MEDS ORDERED: LIDOCAINE 2% 5 ML VIAL ONE (08:28)
[2021-02-11] MEDS ORDERED: ETOMIDATE 20 MG/10 ML VIAL IV ONE (08:28)
[2021-02-11] MEDS ORDERED: propofoL 200 MG/20 ML VIAL IV ONE (08:28)
[2021-02-11] MEDS ORDERED: SODIUM CHLORIDE 0.9% 1,000 ML IV SCH (10:00)
[2021-02-11] MEDS: PANTOPRAZOLE 40 MG TABLET PO SCH ×2 (10:33→21:17)
[2021-02-11] MEDS: NYSTATIN 500,000 UNIT/5 ML UDCUP SWISH/SWAL SCH ×4 (10:33→21:17)
[2021-02-11] MEDS: predniSONE 5 MG TABLET PO SCH (10:34)
[2021-02-11] MEDS: LEVOFLOXACIN 500 MG TABLET PO SCH (10:34)
[2021-02-11] MEDS: carvediloL 25 MG TABLET PO SCH ×2 (10:34→21:16)
[2021-02-11] MEDS: FINASTERIDE 5 MG TABLET PO SCH (10:34)
[2021-02-11] MEDS: INSULIN LISPRO 100 UNIT/ML SUBCUT SCH ×5 (10:35→21:15)
[2021-02-11] MEDS: cefTRIAXone 1,000 MG in SODIUM CHLORIDE 0.9% 100 ML IV SCH (10:43)
[2021-02-11] MEDS: POLYCARBOPHIL 625 MG TABLET PO SCH (18:19)
[2021-02-12] MEDS: ALBUTEROL/IPRATROPIUM 3 ML NEB RESP TX SCH ×4 (00:30→19:46)
[2021-02-12] MEDS: INSULIN LISPRO 100 UNIT/ML SUBCUT SCH ×4 (09:57→22:01)
[2021-02-12] MEDS: NYSTATIN 500,000 UNIT/5 ML UDCUP SWISH/SWAL SCH ×5 (09:58→22:01)
[2021-02-12] MEDS: carvediloL 25 MG TABLET PO SCH ×3 (09:58→22:00)
[2021-02-12] MEDS: PANTOPRAZOLE 40 MG TABLET PO SCH ×2 (14:10→22:00)
[2021-02-12] MEDS: FINASTERIDE 5 MG TABLET PO SCH (14:10)
[2021-02-12] MEDS: predniSONE 5 MG TABLET PO SCH (14:10)
[2021-02-12] MEDS: cefTRIAXone 1,000 MG in SODIUM CHLORIDE 0.9% 100 ML IV SCH (14:11)
[2021-02-12] MEDS: POLYCARBOPHIL 625 MG TABLET PO SCH (22:00)
[2021-02-13] MEDS: ALBUTEROL/IPRATROPIUM 3 ML NEB RESP TX SCH ×4 (01:24→20:52)
[2021-02-13 06:44] LABS: Basophils # 0.1 10*3/uL (0.0-0.2); Basophils % 0.5 % (0.0-0.8); Eosinophils # 0.4 10*3/uL (0.0-0.87); Eosinophils % 3.5 % (0.00-10.9); Hematocrit 28.6 VOL% (42.0-52.0); Hemoglobin 8.8 GM/DL (14.0-18.0); Immature Granulocytes % 3.2 %; Immature Granulocytes Absolute 0.32 #; Lymphocytes # 1.1 10*3/uL (1.4-4.0); Lymphocytes % 11.2 % (21.2-54.2); Mean Corpuscular HGB Conc 30.8 GM/DL (32-36); Mean Corpuscular Volume 90.2 FL (87-102); Mean Platelet Volume 10.4 FL (9.6-12.0); Monocytes % 9.8 % (1.7-12.7); Neutrophils % 71.8 % (38.7-73.9); Platelet Count 149 T/CUMM (130-400); Red Blood Count 3.17 MC/CUMM (3.8-5.5); Red Cell Distribution Width 14.9 % (9.3-17.3); White Blood Count 9.9 T/CUMM (4-12)
[2021-02-13 07:08] LABS: Eosinophils 2 % (0-10); Lymphocytes 6 % (20-55); Platelet Estimate Adequate; Segmented Neutrophils 84 % (50-85); Total Cells Counted 100
[2021-02-13 07:09] LABS: Hypochromasia 1+; Microcytosis 1+
[2021-02-13 07:11] LABS: Calcium 8.3 MG/DL (8.5-10.1); Osmolality,Calculated 286.2 MOS/KG (273-304); Potassium 5.2 MMOL/L (3.5-5.1)
[2021-02-13] MEDS ORDERED: SODIUM POLYSTYRENE SULFATE 15 GM/60 ML BOTTLE PO ONE (07:32)
[2021-02-13] MEDS: INSULIN LISPRO 100 UNIT/ML SUBCUT SCH ×4 (09:37→21:17)
[2021-02-13] MEDS: NYSTATIN 500,000 UNIT/5 ML UDCUP SWISH/SWAL SCH ×4 (09:37→21:16)
[2021-02-13] MEDS: PANTOPRAZOLE 40 MG TABLET PO SCH ×2 (09:38→21:16)
[2021-02-13] MEDS: carvediloL 25 MG TABLET PO SCH ×2 (09:38→21:16)
[2021-02-13] MEDS: predniSONE 5 MG TABLET PO SCH (09:38)
[2021-02-13] MEDS: FINASTERIDE 5 MG TABLET PO SCH (09:38)
[2021-02-13] MEDS: cefTRIAXone 1,000 MG in SODIUM CHLORIDE 0.9% 100 ML IV SCH (10:27)
[2021-02-13] MEDS: POLYCARBOPHIL 625 MG TABLET PO SCH (18:31)
[2021-02-13] MEDS: ACETAMINOPHEN 500 MG TABLET PO PRN (22:06)
[2021-02-14] MEDS: ALBUTEROL/IPRATROPIUM 3 ML NEB RESP TX SCH ×4 (02:36→19:29)
[2021-02-14] MEDS: ACETAMINOPHEN 500 MG TABLET PO PRN (04:27)
[2021-02-14 06:05] LABS: Osmolality,Calculated 283.5 MOS/KG (273-304)
[2021-02-14 06:12] LABS: Basophils # 0.1 10*3/uL (0.0-0.2); Basophils % 0.7 % (0.0-0.8); Eosinophils # 0.5 10*3/uL (0.0-0.87); Eosinophils % 3.8 % (0.00-10.9); Hematocrit 34.1 VOL% (42.0-52.0); Hemoglobin 10.4 GM/DL (14.0-18.0); Immature Granulocytes % 3.3 %; Immature Granulocytes Absolute 0.43 #; Lymphocytes # 1.4 10*3/uL (1.4-4.0); Lymphocytes % 11.1 % (21.2-54.2); Mean Corpuscular HGB Conc 30.5 GM/DL (32-36); Mean Corpuscular Volume 91.7 FL (87-102); Mean Platelet Volume 11.5 FL (9.6-12.0); Monocytes % 6.3 % (1.7-12.7); Neutrophils % 74.8 % (38.7-73.9); Platelet Count 187 T/CUMM (130-400); Red Blood Count 3.72 MC/CUMM (3.8-5.5); Red Cell Distribution Width 14.9 % (9.3-17.3)
[2021-02-14 07:30] LABS: Band Neutrophils 1 % (0-10); Eosinophils 2 % (0-10); Hypochromasia 1+; Lymphocytes 13 % (20-55); Metamyelocytes 1 %; Microcytosis 1+; Myelocytes 1 %; Segmented Neutrophils 74 % (50-85); Total Cells Counted 100
[2021-02-14 07:31] LABS: Ovalocytes Few; Platelet Estimate Adequate
[2021-02-14] MEDS: carvediloL 25 MG TABLET PO SCH ×2 (09:58→21:20)
[2021-02-14] MEDS: NYSTATIN 500,000 UNIT/5 ML UDCUP SWISH/SWAL SCH ×4 (10:03→21:20)
[2021-02-14] MEDS: INSULIN LISPRO 100 UNIT/ML SUBCUT SCH ×4 (10:04→21:20)
[2021-02-14] MEDS: FINASTERIDE 5 MG TABLET PO SCH (10:04)
[2021-02-14] MEDS: predniSONE 5 MG TABLET PO SCH (10:04)
[2021-02-14] MEDS: PANTOPRAZOLE 40 MG TABLET PO SCH ×2 (10:04→21:20)
[2021-02-14] MEDS: cefTRIAXone 1,000 MG in SODIUM CHLORIDE 0.9% 100 ML IV SCH (10:05)
[2021-02-14] MEDS ORDERED: IRON SUCROSE 100 MG/5 ML VIAL IV SCH (14:30)
[2021-02-14] MEDS: POLYCARBOPHIL 625 MG TABLET PO SCH (20:02)
[2021-02-15 05:08] LABS: Osmolality,Calculated 279.5 MOS/KG (273-304); Potassium 5.2 MMOL/L (3.5-5.1)
[2021-02-15 05:41] LABS: Basophils # 0.1 10*3/uL (0.0-0.2); Basophils % 0.8 % (0.0-0.8); Eosinophils # 0.4 10*3/uL (0.0-0.87); Eosinophils % 3.1 % (0.00-10.9); Hematocrit 30.5 VOL% (42.0-52.0); Hemoglobin 9.2 GM/DL (14.0-18.0); Immature Granulocytes % 2.7 %; Immature Granulocytes Absolute 0.32 #; Lymphocytes # 1.7 10*3/uL (1.4-4.0); Lymphocytes % 14.3 % (21.2-54.2); Mean Corpuscular HGB Conc 30.2 GM/DL (32-36); Mean Platelet Volume 11.2 FL (9.6-12.0); Monocytes % 8.3 % (1.7-12.7); Neutrophils % 70.8 % (38.7-73.9); Platelet Count 125 T/CUMM (130-400); Red Blood Count 3.28 MC/CUMM (3.8-5.5); White Blood Count 11.8 T/CUMM (4-12)
[2021-02-15 06:26] LABS: Band Neutrophils 2 % (0-10); Eosinophils 4 % (0-10); Hypochromasia 1+; Lymphocytes 12 % (20-55); Microcytosis 1+; Ovalocytes Slight; Segmented Neutrophils 77 % (50-85); Total Cells Counted 100
[2021-02-15 06:27] LABS: Platelet Estimate Adequate
[2021-02-15] MEDS: ALBUTEROL/IPRATROPIUM 3 ML NEB RESP TX SCH ×4 (07:06→19:07)
[2021-02-15] MEDS: predniSONE 5 MG TABLET PO SCH (08:48)
[2021-02-15] MEDS: INSULIN LISPRO 100 UNIT/ML SUBCUT SCH ×3 (08:48→16:26)
[2021-02-15] MEDS: PANTOPRAZOLE 40 MG TABLET PO SCH (08:49)
[2021-02-15] MEDS: FINASTERIDE 5 MG TABLET PO SCH (08:51)
[2021-02-15] MEDS: carvediloL 25 MG TABLET PO SCH (08:52)
[2021-02-15] MEDS: NYSTATIN 500,000 UNIT/5 ML UDCUP SWISH/SWAL SCH ×3 (08:52→18:24)
[2021-02-15] MEDS ORDERED: SODIUM POLYSTYRENE SULFATE 15 GM/60 ML BOTTLE PO ONE (10:26)
[2021-02-15] MEDS ORDERED: IRON SUCROSE 100 MG/5 ML VIAL IV SCH (12:00)
[2021-02-15 17:04] VITALS: BP 140/58
== END 2021-02-15 20:30 | DRG 673 ==
LOC: N.ED 10:04 → N.EDINP 13:34 → SUATTDRO 13:34 → N.TELES 14:24
PROVIDERS: ADMIT Internal Medicine; ATTEND Internal Medicine

== ENCOUNTER 2021-03-13 11:22 | Inpatient (IN) ==
[2021-03-13 13:08] LABS: Basophils # 0.1 10*3/uL (0.0-0.2); Basophils % 0.9 % (0.0-0.8); Hematocrit 31.6 VOL% (42.0-52.0); Hemoglobin 9.8 GM/DL (14.0-18.0); Immature Granulocytes % 1.3 %; Immature Granulocytes Absolute 0.09 #; Lymphocytes % 29.3 % (21.2-54.2); Mean Corpuscular Volume 85.6 FL (87-102); Mean Platelet Volume 10.1 FL (9.6-12.0); Monocytes % 12.3 % (1.7-12.7); Neutrophils % 56.2 % (38.7-73.9); Platelet Count 196 T/CUMM (130-400); Red Blood Count 3.69 MC/CUMM (3.8-5.5); White Blood Count 6.7 T/CUMM (4-12)
[2021-03-13] MEDS ORDERED: LIDOCAINE 2% 5 ML VIAL ONE (13:15)
[2021-03-13] MEDS ORDERED: propofoL 200 MG/20 ML VIAL IV ONE ×2 (13:15→14:33)
[2021-03-13] MEDS ORDERED: fentaNYL 100 MCG/2 ML VIAL ONE (13:16)
[2021-03-13 13:18] LABS: Alanine Aminotransferase 53 U/L (16-61); Albumin 2.4 G/DL (3.4-5.0); Alkaline Phosphatase 125 U/L (45-117); Aspartate Amino Transferase 34 U/L (0-37); Bilirubin,Total < 0.39 MG/DL (0.20-1.00); Blood Urea Nitrogen 29 MG/DL (7-18); Calcium 8.1 MG/DL (8.5-10.1); Carbon Dioxide 26 MMOL/L (21-32); Estimated Glom Filtration Rate 22 ML/MIN; Glucose 138 MG/DL (74-106); Osmolality,Calculated 280.8 MOS/KG (273-304); Potassium 3.7 MMOL/L (3.5-5.1); Sodium 137 MMOL/L (136-145); Total Protein 6.7 G/DL (6.4-8.2)
[2021-03-13] MEDS ORDERED: ONDANSETRON 4 MG/2 ML VIAL ONE (14:16)
[2021-03-13] MEDS ORDERED: LIDOCAINE 1% 20 ML VIAL ONE (14:20)
[2021-03-13] MEDS ORDERED: BUPIVACAINE MPF 0.25% 30 ML VIAL ONE (14:20)
[2021-03-13] MEDS ORDERED: SODIUM CHLORIDE 0.9% 100 ML IV ONE (14:33)
[2021-03-13] MEDS ORDERED: SODIUM CHLORIDE 0.9% 250 ML IV ONE (14:33)
[2021-03-13] MEDS ORDERED: methylPREDNISolone SOD SUC 125 MG/2 ML VIAL ONE (14:34)
[2021-03-13] MEDS ORDERED: DEXTROSE 50% 25 GM/50 ML VIAL IV PRN ×2 (16:08)
[2021-03-13] MEDS ORDERED: ONDANSETRON 4 MG/2 ML VIAL IV PRN (16:08)
[2021-03-13] MEDS ORDERED: GLUCAGON 1 MG VIAL IM PRN ×2 (16:08)
[2021-03-13] MEDS: INSULIN LISPRO 100 UNIT/ML SUBCUT SCH ×2 (16:20→21:47)
[2021-03-13] MEDS ORDERED: POLYCARBOPHIL 625 MG TABLET PO SCH (21:00)
[2021-03-13] MEDS: CLINDAMYCIN 300 MG CAPSULE PO SCH (21:46)
[2021-03-13] MEDS: carvediloL 25 MG TABLET PO SCH (21:46)
[2021-03-13] MEDS: PANTOPRAZOLE 40 MG TABLET PO SCH (21:46)
[2021-03-13] MEDS: DESITIN 4OZ/NYSTATIN 15 GRAM MIXTURE PASTE TOP SCH (21:48)
[2021-03-14 05:38] LABS: Basophils % 0.3 % (0.0-0.8); Hematocrit 24.7 VOL% (42.0-52.0); Immature Granulocytes % 1.3 %; Lymphocytes # 1.6 10*3/uL (1.4-4.0); Lymphocytes % 21.7 % (21.2-54.2); Mean Corpuscular HGB Conc 31.2 GM/DL (32-36); Mean Corpuscular Volume 86.1 FL (87-102); Mean Platelet Volume 10.3 FL (9.6-12.0); Monocytes % 4.7 % (1.7-12.7); Red Cell Distribution Width 14.9 % (9.3-17.3); White Blood Count 7.5 T/CUMM (4-12)
[2021-03-14 05:47] LABS: Alanine Aminotransferase 39 U/L (16-61); Albumin 2.4 G/DL (3.4-5.0); Alkaline Phosphatase 117 U/L (45-117); Aspartate Amino Transferase 25 U/L (0-37); Bilirubin,Total < 0.39 MG/DL (0.20-1.00); Blood Urea Nitrogen 38 MG/DL (7-18); Calcium 8.8 MG/DL (8.5-10.1); Carbon Dioxide 24 MMOL/L (21-32); Estimated Glom Filtration Rate 17 ML/MIN; Glucose 203 MG/DL (74-106); Osmolality,Calculated 284.1 MOS/KG (273-304); Potassium 4.2 MMOL/L (3.5-5.1); Sodium 135 MMOL/L (136-145); Total Protein 7.2 G/DL (6.4-8.2)
[2021-03-14 05:48] LABS: Hemoglobin 7.7 GM/DL (14.0-18.0); Platelet Count 248 T/CUMM (130-400); Red Blood Count 2.87 MC/CUMM (3.8-5.5)
[2021-03-14] MEDS: CLINDAMYCIN 300 MG CAPSULE PO SCH ×2 (06:04→14:00)
[2021-03-14] MEDS ORDERED: FINASTERIDE 5 MG TABLET PO SCH (09:00)
[2021-03-14] MEDS: INSULIN LISPRO 100 UNIT/ML SUBCUT SCH ×3 (09:40→16:24)
[2021-03-14] MEDS: PANTOPRAZOLE 40 MG TABLET PO SCH (09:42)
[2021-03-14] MEDS ORDERED: HEPARIN 10,000 UNIT/10 ML VIAL IV SCH (10:00)
[2021-03-14] MEDS ORDERED: INSULIN GLARGINE 100 UNIT/ML SUBCUT SCH ×3 (11:00→19:00)
[2021-03-14] MEDS: carvediloL 25 MG TABLET PO SCH (12:37)
[2021-03-14] MEDS: DESITIN 4OZ/NYSTATIN 15 GRAM MIXTURE PASTE TOP SCH (12:38)
[2021-03-14 15:50] VITALS: BP 155/91
[2021-03-14] MEDS ORDERED: ENOXAPARIN 30 MG/0.3 ML SYRINGE SUBCUT SCH (16:30)
[2021-03-14] MEDS ORDERED: HEPARIN 5,000 UNIT/1 ML VIAL SUBCUT SCH (17:00)
[2021-03-14] MEDS ORDERED: SODIUM HYPOCHLORITE 0.25% IRRIG 473 ML BOTTLE TOP SCH (17:00)
[2021-03-15] MEDS ORDERED: predniSONE 5 MG TABLET PO SCH (09:00)
[2021-03-15] MEDS ORDERED: INSULIN GLARGINE 100 UNIT/ML SUBCUT SCH (09:00)
== END 2021-03-14 18:21 | disposition home health service (06) | DRG 264 ==
LOC: N.ED 11:22 → N.3E 15:55
PROVIDERS: ADMIT Internal Medicine; ATTEND Internal Medicine